=== PATIENT | female | born 1965 | race Caucasian/White ===

== ENCOUNTER → 2020-12-13 | Day surgery (SDC) | payer OTHER ==
[~2020-12-13] VITALS: Ht 160 cm; Wt 113.4 kg
[~2020-12-13] MED LIST: ATORVASTATIN CA10 MG PO; BACLOFEN10 MG PO; BACTRIM DS TAB1 EACH PO; BENZONATATE100 MG PO; BUSPIRONE HCL7.5 MG PO; CETIRIZINE HCL10 MG PO; CLARITIN10 MG PO; CYCLOBENZAPRINE10 MG PO; DICLOFENAC SODI75 MG PO; FLUTICASONE PRO16 GM INH; IBUPROFEN800 MG PO; KEFLEX500 MG PO; MACROBID100 MG PO; OXY-IR 5MG5 MG PO; PERCOCET 5-3251 EACH PO; PROAIR HFA8.5 GM INH; ROBAXIN750 MG PO; STIOLTO RESPIMAT 2.5 INH; SUMATRIPTAN SUC50 MG PO; TRAMADOL HCL50 MG PO; VITAMIN D350 MC5 PO
[2020-12-13 07:13] LABS: HCT 41.7 % (37.0-47.0); HGB 13.3 g/dl (12.5-16.0); MCH 29.2 pg (25.0-31.0); MCHC 31.9 g/dL (32.0-36.0); MCV 91.4 fL (78.0-100.0); RBC 4.56 M/uL (4.20-5.40); RDW 12.7 % (11.5-14.0); WBC 4.5 K/uL (4.0-10.5)
[2020-12-13 07:28] LABS: ALBUMIN 3.4 g/dL (3.4-5.0); BILIRUBIN - TOTAL 0.3 mg/dL (0.2-1.0); BUN/CREAT RATIO (CALC) 16.7 RATIO; CREATININE 0.72 mg/dL (0.51-0.95); GLOBULIN (CALCULATION) 3.7 g/dL; POTASSIUM 4.1 mmol/L (3.5-5.1); TOTAL PROTEIN 7.1 g/dL (6.4-8.2)
== END | disposition home or self-care (01) ==
LOC: FAS 06:27
PROVIDERS: Orthopaedic Surgery
DX: G56.02 Carpal tunnel syndrome, left upper limb (principal); G56.22 Lesion of ulnar nerve, left upper limb; R93.1 Abnormal findings on diagnostic imaging of heart and coronary circulation
CPT/HCPCS: 36415; 71045; 80053; 93005; J1100; J1885; J2250; J2405; J2704; J3010; J7120

== ENCOUNTER → 2021-05-25 | Day surgery (SDC) | payer OTHER ==
[~2021-05-25] VITALS: Ht 165.1 cm; Wt 107.0 kg
== END | disposition home or self-care (01) ==
LOC: FAS 09:13
DX: R19.7 Diarrhea, unspecified (principal); D12.0 Benign neoplasm of cecum; D12.2 Benign neoplasm of ascending colon; D12.5 Benign neoplasm of sigmoid colon; K64.4 Residual hemorrhoidal skin tags; K29.80 Duodenitis without bleeding; K29.50 Unspecified chronic gastritis without bleeding; K31.89 Other diseases of stomach and duodenum; K21.9 Gastro-esophageal reflux disease without esophagitis; F17.210 Nicotine dependence, cigarettes, uncomplicated; M19.90 Unspecified osteoarthritis, unspecified site; J44.9 Chronic obstructive pulmonary disease, unspecified; E78.00 Pure hypercholesterolemia, unspecified; E66.9 Obesity, unspecified; Z90.710 Acquired absence of both cervix and uterus; Z79.82 Long term (current) use of aspirin; Z88.5 Allergy status to narcotic agent; Z88.0 Allergy status to penicillin; Z88.6 Allergy status to analgesic agent; Z91.040 Latex allergy status; Z80.0 Family history of malignant neoplasm of digestive organs; Z88.8 Allergy status to other drugs, medicaments and biological substances; Z72.89 Other problems related to lifestyle
CPT/HCPCS: J2250; J2704; J7120